=== PATIENT | male | born 1960 | race Caucasian/White ===

== ENCOUNTER 2024-06-07 22:30 | Emergency (ER) | payer OTHER ==
[~2024-06-07] VITALS: Ht 175.3 cm; Wt 93.0 kg
[2024-06-07 22:50] VITALS: BP 182/75; PULSE 56; RESP 18; TEMP 36.8; O2SAT 99
[2024-06-07 23:04] LABS: CLARITY URINE TURBID (CLEAR); COLOR URINE ORANGE (YELLOW); GLUCOSE URINE NEGATIVE (NEGATIVE); KETONES URINE NEGATIVE (NEGATIVE); LEUKOCYTE ESTERASE URINE TRACE (NEGATIVE); NITRITE URINE NEGATIVE (NEGATIVE); OCCULT BLOOD URINE 3+ (NEGATIVE); PH URINE 6.5 (4.5-8.0); PROTEIN URINE TRACE (NEGATIVE); SPECIFIC GRAVITY URINE 1.004 (1.005-1.030)
[2024-06-07 23:18] LABS: BACTERIA URINE 1+; SQUAMOUS EPITHELIAL CELL URINE NONE SEEN /lpf (RARE/1+)
[2024-06-08 02:31] LABS: CARBON DIOXIDE 22 mEq/L (21-32); CHLORIDE 103 mEq/L (98-107); POTASSIUM 3.7 mEq/L (3.5-5.1); SODIUM 134 mEq/L (136-145)
[2024-06-08 02:32] LABS: CALCIUM 8.9 mg/dL (8.7-10.4)
[2024-06-08 02:36] LABS: CREATININE 1.3 mg/dL (0.6-1.3)
[2024-06-08 02:37] LABS: GLUCOSE 117 mg/dL (70-105); UREA NITROGEN BLOOD 15 mg/dL (9-23)
[2024-06-08 02:38] LABS: ALANINE AMINOTRANSFERASE 25 IU/L (10-49); ALBUMIN 3.7 g/dL (3.2-4.8); ASPARTATE AMINOTRANSFERASE 46 IU/L (<34)
[2024-06-08 02:39] LABS: BILIRUBIN DIRECT 0.4 mg/dL (<=3.0); BILIRUBIN TOTAL 1.1 mg/dL (0.1-1.0); PROTEIN TOTAL 7.4 g/dL (6.0-8.3)
[2024-06-08] MEDS ORDERED: CEPH250C2 MT (03:06)
[2024-06-08 03:29] LABS: HEMATOCRIT. 36.6 % (42.0-52.0); MEAN CORPUSCULAR HGB CONC 32.8 g/dL (31.0-37.0); MEAN CORPUSCULAR VOLUME 88.4 fL (80.0-94.0); MEAN PLATELET VOLUME 10.2 fl (7.4-10.4); PLATELET 100 x1000/uL (130-400); RED BLOOD CELL COUNT 4.14 mill/uL (4.7-6.1); RED CELL DISTRIBUTION WIDTH 20.2 % (11.6-14.6); WHITE BLOOD COUNT 4.8 x1000/uL (4.5-11.0)
[2024-06-08 03:32] LABS: DIFFERENTIAL COMMENT 1
[2024-06-08 07:16] LABS: PLATELET ESTIMATE SLIGHTLY DECREASED
== END 2024-06-08 04:47 | disposition home or self-care (01) ==
LOC: ER 22:30
DX: R31.9 Hematuria, unspecified (principal); I10 Essential (primary) hypertension
CPT/HCPCS: 36415; 74176; 80053; 80076; 81003; 85025; 99284

== ENCOUNTER 2024-09-02 17:43 | Inpatient (IN) | payer MEDICAID, OTHER ==
[~2024-09-02] VITALS: Ht 165.1 cm; Wt 88.0 kg
[~2024-09-02 17:43] MED LIST: CEPH250C2 MT
[2024-09-02 18:23] LABS: MEAN CORPUSCULAR HEMOGLOBIN 30.9 pg (28.0-32.0); MEAN CORPUSCULAR HGB CONC 33.2 g/dL (31.0-37.0); MEAN CORPUSCULAR VOLUME 93.1 fL (80.0-94.0); MEAN PLATELET VOLUME 9.5 fl (7.4-10.4); PLATELET 55 x1000/uL (130-400); RED BLOOD CELL COUNT 2.12 mill/uL (4.7-6.1); RED CELL DISTRIBUTION WIDTH 24.6 % (11.6-14.6); WHITE BLOOD COUNT 8.3 x1000/uL (4.5-11.0)
[2024-09-02] MEDS: DIAZEPAM 5 MG/ML 2ML SYR IV ONE (18:24)
[2024-09-02] MEDS: SODIUM CHLORIDE 0.9% 1,000 ML IV ONE (18:24)
[2024-09-02 18:29] LABS: DIFFERENTIAL COMMENT 1; HEMATOCRIT. 19.7 % (42.0-52.0); HEMOGLOBIN. 6.5 g/dL (14.0-18.0)
[2024-09-02 18:30] LABS: CHLORIDE 100 mEq/L (98-107); POTASSIUM 3.6 mEq/L (3.5-5.1); SODIUM 137 mEq/L (136-145)
[2024-09-02 18:31] LABS: CALCIUM 7.5 mg/dL (8.7-10.4); CARBON DIOXIDE 22 mEq/L (21-32)
[2024-09-02 18:36] LABS: CREATININE 1.4 mg/dL (0.6-1.3); GLUCOSE 111 mg/dL (70-105); UREA NITROGEN BLOOD 38 mg/dL (9-23)
[2024-09-02 18:37] LABS: TROPONIN I HIGH SENSITIVITY 14 ng/L (3.0-53)
[2024-09-02 18:38] LABS: ALANINE AMINOTRANSFERASE 67 IU/L (10-49); ALBUMIN 2.8 g/dL (3.2-4.8); ASPARTATE AMINOTRANSFERASE 269 IU/L (<34); BILIRUBIN DIRECT 6.4 mg/dL (<=3.0); BILIRUBIN TOTAL 10.1 mg/dL (0.1-1.0); PROTEIN TOTAL 5.6 g/dL (6.0-8.3)
[2024-09-02 18:46] LABS: HYPOCHROMASIA 1+; MICROCYTOSIS 1+; PLATELET ESTIMATE DECREASED; TARGET CELLS 2+
[2024-09-02 18:47] LABS: AMMONIA 111 uMol/L (<32)
[2024-09-02] MEDS: FOLIC ACID 1 MG, THIAMINE HCL 100 MG, MVI, ADULT NO.1 10 ML in DEXTROSE 5% WATER 1,000 ML IV ONE (18:50)
[2024-09-02] MEDS: LACTULOSE 20G/30ML UDC PO ONE (19:18)
[2024-09-02 19:27] LABS: INR 1.7; PARTIAL THROMBOPLASTIN TIME 40.1 sec (23.4-31.0); PROTHROMBIN TIME 17.3 sec (9.6-11.0)
[2024-09-02 20:20] LABS: TROPONIN I HIGH SENSITIVITY 12 ng/L (3.0-53)
[2024-09-03] VITALS (9 sets, daily range): BP systolic 104–133; BP diastolic 49–80; PULSE 71–79; RESP 16–18; TEMP 36.4–37.11408; O2SAT 98–99
[2024-09-03] MEDS ORDERED: ONDANSETRON HCL 4MG/2ML INJ IV PRN (02:00)
[2024-09-03 04:09] LABS: CHLORIDE 103 mEq/L (98-107); POTASSIUM 3.3 mEq/L (3.5-5.1); SODIUM 135 mEq/L (136-145)
[2024-09-03 04:10] LABS: CALCIUM 7.2 mg/dL (8.7-10.4); CARBON DIOXIDE 23 mEq/L (21-32)
[2024-09-03 04:15] LABS: CREATININE 1.2 mg/dL (0.6-1.3); GLUCOSE 98 mg/dL (70-105); UREA NITROGEN BLOOD 36 mg/dL (9-23)
[2024-09-03 04:16] LABS: ALANINE AMINOTRANSFERASE 66 IU/L (10-49)
[2024-09-03 04:17] LABS: ALBUMIN 2.4 g/dL (3.2-4.8); ASPARTATE AMINOTRANSFERASE 268 IU/L (<34); BILIRUBIN TOTAL 9.9 mg/dL (0.1-1.0); PROTEIN TOTAL 5.1 g/dL (6.0-8.3)
[2024-09-03 04:22] LABS: MEAN CORPUSCULAR HEMOGLOBIN 30.9 pg (28.0-32.0); MEAN CORPUSCULAR HGB CONC 33.8 g/dL (31.0-37.0); MEAN CORPUSCULAR VOLUME 91.4 fL (80.0-94.0); MEAN PLATELET VOLUME 9.4 fl (7.4-10.4); PLATELET 53 x1000/uL (130-400); RED BLOOD CELL COUNT 2.22 mill/uL (4.7-6.1); RED CELL DISTRIBUTION WIDTH 24.1 % (11.6-14.6); WHITE BLOOD COUNT 8.1 x1000/uL (4.5-11.0)
[2024-09-03 04:50] LABS: DIFFERENTIAL COMMENT 1
[2024-09-03 04:52] LABS: HEMOGLOBIN. 6.9 g/dL (14.0-18.0)
[2024-09-03 04:53] LABS: HEMATOCRIT. 20.3 % (42.0-52.0)
[2024-09-03] MEDS: PANTOPRAZOLE 40MG DR TABLET PO SCH (09:43)
[2024-09-03 12:39] LABS: NUCLEATED RED BLOOD CELLS 1 /100 WBC; PLATELET ESTIMATE DECREASED
[2024-09-03 12:40] LABS: ANISOCYTOSIS 3+; HYPOCHROMASIA 1+; TARGET CELLS 2+
[2024-09-03] MEDS: OCTREOTIDE 1,000 MCG in SODIUM CHLORIDE 0.9% 98 ML IV SCH (13:09)
[2024-09-03] MEDS: PHYTONADIONE 10 MG in DEXTROSE 5% WATER 49 ML IV NR (13:10)
[2024-09-03] MEDS: FOLIC ACID 1 MG, THIAMINE HCL 100 MG, MVI, ADULT NO.1 10 ML in DEXTROSE 5% WATER 1,000 ML IV NR (13:11)
[2024-09-03] MEDS: LACTULOSE 20G/30ML UDC PO SCH ×2 (16:17→23:57)
[2024-09-03] MEDS: RIFAXIMIN 550 MG TABLET PO SCH (23:58)
[2024-09-04] VITALS (7 sets, daily range): BP systolic 120–135; BP diastolic 48–121; PULSE 66–75; RESP 16–19; TEMP 35.9–37.6; O2SAT 97–100
[2024-09-04 07:01] LABS: AMMONIA 112 uMol/L (<32)
[2024-09-04 07:01] LABS: CHLORIDE 100 mEq/L (98-107); POTASSIUM 3.3 mEq/L (3.5-5.1); SODIUM 133 mEq/L (136-145)
[2024-09-04 07:03] LABS: INR 1.5; PROTHROMBIN TIME 15.5 sec (9.6-11.0)
[2024-09-04 07:04] LABS: CALCIUM 7.1 mg/dL (8.7-10.4); CARBON DIOXIDE 23 mEq/L (21-32); HEMATOCRIT. 21.2 % (42.0-52.0); HEMOGLOBIN. 7.3 g/dL (14.0-18.0); MEAN CORPUSCULAR HEMOGLOBIN 30.6 pg (28.0-32.0); MEAN CORPUSCULAR HGB CONC 34.6 g/dL (31.0-37.0); MEAN CORPUSCULAR VOLUME 88.3 fL (80.0-94.0); MEAN PLATELET VOLUME 9.2 fl (7.4-10.4); PLATELET 72 x1000/uL (130-400); RED CELL DISTRIBUTION WIDTH 22.5 % (11.6-14.6); WHITE BLOOD COUNT 8.9 x1000/uL (4.5-11.0)
[2024-09-04 07:09] LABS: CREATININE 1.1 mg/dL (0.6-1.3); GLUCOSE 98 mg/dL (70-105)
[2024-09-04 07:10] LABS: ALANINE AMINOTRANSFERASE 79 IU/L (10-49); UREA NITROGEN BLOOD 33 mg/dL (9-23)
[2024-09-04 07:11] LABS: ALBUMIN 2.4 g/dL (3.2-4.8); ASPARTATE AMINOTRANSFERASE 293 IU/L (<34); BILIRUBIN DIRECT 6.6 mg/dL (<=3.0); FERRITIN 306 ng/mL (22-322)
[2024-09-04 07:12] LABS: BILIRUBIN TOTAL 9.3 mg/dL (0.1-1.0); FOLIC ACID (FOLATE) SERUM > 20.00 ng/mL (>5.38); IRON 84 ug/dL (65-175); PROTEIN TOTAL 5.1 g/dL (6.0-8.3)
[2024-09-04 07:13] LABS: DIFFERENTIAL COMMENT 1
[2024-09-04 07:25] LABS: HEPATITIS B SURFACE ANTIGEN NEGATIVE (Negative)
[2024-09-04 07:45] LABS: HEPATITIS A AB IGM NEGATIVE (Negative)
[2024-09-04 07:46] LABS: HEPATITIS B CORE AB IGM NEGATIVE (Negative); HEPATITIS C AB NON REACTIVE (Neg) (Negative)
[2024-09-04 07:51] LABS: TOTAL IRON BINDING CAPACITY 186 ug/dl (250-425)
[2024-09-04 07:52] LABS: VITAMIN B12 SERUM > 2000 pg/mL (211-911)
[2024-09-04] MEDS ORDERED: ONDANSETRON HCL 4MG/2ML INJ IV PRN (08:15)
[2024-09-04] MEDS: PHYTONADIONE 10MG/ML INJ SUBCUT SCH (09:00)
[2024-09-04] MEDS ORDERED: EPHEDRINE SULFATE 50MG/ML VIAL ONE (09:37)
[2024-09-04] MEDS ORDERED: PROPOFOL 200MG/20ML VIAL IV ONE (09:37)
[2024-09-04 11:25] LABS: NUCLEATED RED BLOOD CELLS 4 /100 WBC
[2024-09-04 11:26] LABS: ANISOCYTOSIS 2+; HYPOCHROMASIA 1+; PLATELET ESTIMATE DECREASED; TARGET CELLS 2+
[2024-09-04 13:35] LABS: AMMONIA 67 uMol/L (<32)
[2024-09-05] VITALS: BP 106/45; PULSE 71; RESP 17; TEMP 36.4; O2SAT 99
[2024-09-05 04:00] VITALS: BP 146/62; PULSE 72; RESP 16; TEMP 36.1; O2SAT 99
[2024-09-05 06:39] LABS: CARBON DIOXIDE 23 mEq/L (21-32); CHLORIDE 101 mEq/L (98-107); POTASSIUM 3.2 mEq/L (3.5-5.1); SODIUM 133 mEq/L (136-145)
[2024-09-05 06:40] LABS: CALCIUM 7.5 mg/dL (8.7-10.4)
[2024-09-05 06:45] LABS: CREATININE 1.1 mg/dL (0.6-1.3); GLUCOSE 88 mg/dL (70-105); UREA NITROGEN BLOOD 28 mg/dL (9-23)
[2024-09-05 06:59] LABS: HEMATOCRIT. 22.6 % (42.0-52.0); HEMOGLOBIN. 7.7 g/dL (14.0-18.0); MEAN CORPUSCULAR HEMOGLOBIN 30.7 pg (28.0-32.0); MEAN CORPUSCULAR HGB CONC 34.1 g/dL (31.0-37.0); MEAN PLATELET VOLUME 8.9 fl (7.4-10.4); PLATELET 87 x1000/uL (130-400); RED BLOOD CELL COUNT 2.51 mill/uL (4.7-6.1); RED CELL DISTRIBUTION WIDTH 23.5 % (11.6-14.6); WHITE BLOOD COUNT 10.1 x1000/uL (4.5-11.0)
[2024-09-05 07:02] LABS: DIFFERENTIAL COMMENT 1
[2024-09-05 08:00] VITALS: BP 147/59; PULSE 75; RESP 17; TEMP 36.7; O2SAT 99
[2024-09-05 08:19] LABS: ANISOCYTOSIS 2+; NUCLEATED RED BLOOD CELLS 3 /100 WBC; PLATELET ESTIMATE DECREASED; TARGET CELLS 1+
[2024-09-05 09:30] LABS: CLARITY URINE CLEAR (CLEAR); COLOR URINE DARK YELLOW (YELLOW); GLUCOSE URINE NEGATIVE (NEGATIVE); KETONES URINE TRACE (NEGATIVE); LEUKOCYTE ESTERASE URINE TRACE (NEGATIVE); NITRITE URINE NEGATIVE (NEGATIVE); OCCULT BLOOD URINE NEGATIVE (NEGATIVE); PH URINE 6.5 (4.5-8.0); PROTEIN URINE NEGATIVE (NEGATIVE); SPECIFIC GRAVITY URINE 1.018 (1.005-1.030)
[2024-09-05 09:39] LABS: *AMPHETAMINES SCREEN URINE NEGATIVE (NEGATIVE); *BARBITURATES SCREEN URINE NEGATIVE (NEGATIVE); *BENZODIAZEPINES SCREEN URINE NEGATIVE (NEGATIVE); *COCAINE SCREEN URINE NEGATIVE (NEGATIVE); CANNABINOID URINE SCREEN PRESUMPTIVE POSITIVE (NEGATIVE); ECSTASY MDMA SCREEN URINE NEGATIVE (NEGATIVE); METHADONE URINE SCREEN NEGATIVE (NEGATIVE); OPIATES URINE SCREEN NEGATIVE (NEGATIVE); PHENCYCLIDINE URINE SCREEN NEGATIVE (NEGATIVE)
[2024-09-05 09:41] LABS: BACTERIA URINE NONE SEEN; RBC URINE 0-2 /hpf (0-2); SQUAMOUS EPITHELIAL CELL URINE RARE /lpf (RARE/1+); YEAST URINE NONE SEEN
[2024-09-05] MEDS ORDERED: CARV3.1242 MT (11:04)
[2024-09-05] MEDS ORDERED: PROT40 MT (11:04)
[2024-09-05] MEDS ORDERED: LACT-390 MT (11:04)
[2024-09-05 12:00] VITALS: BP 118/85; PULSE 73; RESP 17; TEMP 35.9; O2SAT 96
[2024-09-05] MEDS: POTASSIUM CHLORIDE 20MEQ TABLET SR PO NR (12:45)
[2024-09-05 12:50] VITALS: BP 118/85; PULSE 73; TEMP 96.6; O2SAT 96
[2024-09-05] MEDS ORDERED: CARVEDILOL 3.125 MG TABLET PO SCH (21:00)
== END 2024-09-05 14:08 | disposition home or self-care (01) | DRG 280 ==
LOC: ER 17:43 → 5WST 23:36 → ENRESERV 09-03 00:09
PROVIDERS: ADMIT Internal Medicine; ATTEND Internal Medicine
PROC: 30233N1 Transfusion of Nonautologous Red Blood Cells into Peripheral Vein, Percutaneous Approach (ICD-10-PCS; 2024-09-02)
PROC: 0DB78ZZ Excision of Stomach, Pylorus, Via Natural or Artificial Opening Endoscopic (ICD-10-PCS; principal; 2024-09-04)
DX: K70.31 Alcoholic cirrhosis of liver with ascites (principal); D68.9 Coagulation defect, unspecified; D69.6 Thrombocytopenia, unspecified; K20.91 Esophagitis, unspecified with bleeding; K76.6 Portal hypertension; K76.82 Hepatic encephalopathy; D64.9 Anemia, unspecified; K31.89 Other diseases of stomach and duodenum; E87.6 Hypokalemia; F10.10 Alcohol abuse, uncomplicated; M79.671 Pain in right foot; M79.672 Pain in left foot; K80.20 Calculus of gallbladder without cholecystitis without obstruction; I10 Essential (primary) hypertension; D69.59 Other secondary thrombocytopenia; K76.9 Liver disease, unspecified
CPT/HCPCS: 36415; 76700; 80048; 80053; 80076; 80305; 81003; 82105; 82140; 82270; 82607; 82728; 82746; 83540; 83550; 83735; 84484; 85025; 85044; 86705; 86709; 86850; 86900; 86920; 87340; 88305; 88312; 88313; 93005; 99285; A4606; J2354; J2704; J3411; J3430; J3490; J7030; J7050; J7060; J7070; P9016